=== PATIENT | female | born 1945 | race African-American/Black ===

== ENCOUNTER 2016-06-01 18:55 | Emergency (ER) ==
[2016-06-01] MEDS ORDERED: NORCO-10 PO ONE (19:25)
[2016-06-01] MEDS ORDERED: TORADOL IM ONE (19:36)
--- NOTE | 2016-06-01 19:38 | PROVIDER DOCUMENTATION ---
HPI-Musculoskeletal Pain/Inj - GENERAL Chief Complaint: Extremity Pain Stated Complaint: RT ARM PAIN Time Seen by Provider: 06/01/16 19:24 Source: patient - HX OF PRESENT ILLNESS-MUSKULOSKELTAL Nature of Presenting Problem: Pt is a 71 y/o F c chief complaint of lateral elbow pain and decreased ability to extend at the elbow joint x 1 day. Pt denies any traumatic injury but states she has been lifting differently with her right arm. Pt has a h/o gout. On arrival, pt is in minimal distress and has her arm in a modified sling. Review of Systems - Adult - REVIEW OF SYSTEMS - ADULT Constitutional: reports: no symptoms reported. denies: chills, fatique Eyes: reports: no symptoms reported. denies: blurred vision, double vision Ears, Nose, Mouth & Throat: reports: no symptoms reported. denies: ear pain, nose pain, throat pain Cardiovascular: reports: no symptoms reported. denies: chest pain, orthopnea Respiratory: reports: no symptoms reported. denies: cough, shortness of breath Gastrointestinal: reports: no symptoms reported. denies: abdominal pain, diarrhea, nausea Genitourinary: reports: no symptoms reported. denies: discharge, hematuria Musculoskeletal: reports: bone pain, joint pain, joint swelling Integumentary: reports: no symptoms reported. denies: itching, rash Neurological: reports: no symptoms reported. denies: numbness, paresthesia Psychiatric: reports: no symptoms reported. denies: anxiety, emotional problems Endocrine: reports: no symptoms reported. denies: cold intolerance, heat intolerance Hematologic/Lymphatic: reports: no symptoms reported. denies: blood clots, low blood count Allergic/Immunologic: reports: no symptoms reported. denies: allergic reactions , food allergy All Other Systems: Reviewed and Negative Past History - Adult - PAST MEDICAL HISTORY-ADULT Review of Records: reports: Old Records Reviewed, Nursing Assessment Review, Medications Reviewed, Social history reviewed & non-contributory. Major Childhood Illnesses: reports: denies history Cardiovascular: reports: HTN, hyperlipidemia Respiratory: reports: denies history Gastrointestinal: reports: denies history Obstetrical/Gynecological: reports: denies history Genitourinary: reports: denies history Musculoskeletal: reports: other (gout) Neurological: reports: other (neuropathy) Endocrine/Immune: reports: Diabetes, thyroid disorder (hypothyroidism) Other Conditions: reports: denies history - PRIOR SURGERIES/PROCEDURES Surgical/Procedure History: reports: cholecystectomy, hysterectomy, other ( laser eye surgery) - IMMUNIZATION STATUS Childhood Immunizations: See Nurse Assessment Flu Vaccine: See Nurse Assessment - FAMILY HISTORY Family History: reviewed, not pertinent - SOCIAL HISTORY Smoking: denies Substance Use: none/never Alcohol Use Frequency: never Physical Exam-Injury Related - Physical Exam-Injury Related Initial Vital Signs Reviewed: Yes General Appearance: appears well, alert, no apparent distress Eyes: PERRL/EOMI, pink conjunctivae Head, Ears, Nose, Mouth & Throat: normocephalic/atraumatic, moist mucous membranes, normal ENT inspection Neck: non-tender, full range of motion, supple Respiratory: chest non-tender, lungs clear, normal breath sounds Cardiovascular: normal peripheral pulses, regular rate, rhythm, no edema Abdominal Exam: normal bowel sounds, non tender, soft Back Exam: normal inspection Extremity: normal range of motion, non-tender, normal gait Integumentary: normal color, warm/dry, blanching Neurologic: grossly normal, no motor/sensory deficits Psych/Mental Status: normal mood/affect, normal thought content, normal thought process, oriented x 3 - Glascow Coma Score Best Eye Response ([place]): (4) open spontaneously Best Verbal Response ([place]): (5) oriented Best Motor Response ([place]): (6) obeys commands Progress - PLAN OF CARE/RESULTS Progress/Plan/Lab Results: Orders Category Date Time Status Arm Sling DIRECTED Care 06/01/16 19:54 Active ELBOW COMPLETE RIGHT [RAD] Stat Exams 06/01/16 19:25 Taken Hydrocodone/APAP 10 mg/325 mg [[place]-10] Med 06/01/16 19:25 Discontinued 1 each PO NOW ONE Ketorolac [Toradol] Med 06/01/16 19:36 Discontinued 30 mg IM NOW ONE Vital Signs - 24 hr 06/01/16 18:57 Temperature 98.4 F Pulse Rate 85 Respiratory 16 Rate Blood Pressure 169/77 O2 Sat by Pulse 100 Oximetry Procedures - SPLINTING Right Upper Extremity Other Location: R arm Pre-Procedure Neurovascular Exam: Intact Pre-Fabricated Splint: Arm Sling Applied By: mechanical shop laborer Assisted By: ED Nurse Post Procedure Neurovascular Exam: Intact Departure - Departure Time of Disposition Order: 19:56 DIAGNOSIS: Gout Qualifiers: Gout site: elbow Gout etiology: unspecified cause Laterality: right Chronicity : acute Qualified Code(s): M10.9 - Gout, unspecified Lateral epicondylitis of elbow Qualifiers: Laterality: right Qualified Code(s): M77.11 - Lateral epicondylitis, right elbow Disposition: HOME 01 Certified Medical Emergency: Emergent Condition: Stable Additional Instructions: ED Follow Up Instructions: You have been treated by a care provider in the Emergency Department. These instructions are being provided to you so you can have an understanding of how to care for yourself upon discharge. Upon discharge from the Emergency Department, you are responsible for making arrangements for follow-up care by a physician of your choice. Take all prescribed medications as directed. Return to the Emergency Department immediately for any new or worsening symptoms. You may call the Physician Referral phone number at [phone] to obtain a list of Physicians who are taking new patients. Prescriptions: Tramadol [Ultram] 50 mg PO Q8HR #14 tablet Referrals: Louise Burgess MD [Primary Care Provider] - Phoenix Tolentino MD [STAFF PHYSICIAN] - Attestation - Physician/ OVIDIO Attestation Patient care was provided by Advanced Practice Provider:: Yes Advanced Practice Provider:: Joni Flood Advanced Practice Provider documentation review:: The Mid-level provider documentation, treatment plan and medical decision making was reviewed by the physician who agrees with all treatment and medical decision making by the MLP.
[2016-06-01 20:13] VITALS: BP 144/65
--- NOTE | 2016-06-02 08:07 | Diag Imaging Result Document ---
PROCEDURE NAME: ELBOW COMPLETE RIGHT - 06/01/2016 RIGHT ELBOW, 3 VIEWS: FINDINGS: There is some spurring over the epicondyles. There is no evidence of fracture or dislocation. No evidence of effusion is present. IMPRESSION: No acute bony disease.
== END 2016-06-01 20:42 | disposition home or self-care (01) ==
LOC: ED 18:55
DX: M77.11 Lateral epicondylitis, right elbow (principal); M10.9 Gout, unspecified; M25.521 Pain in right elbow; M25.421 Effusion, right elbow; I10 Essential (primary) hypertension; E78.5 Hyperlipidemia, unspecified; E11.40 Type 2 diabetes mellitus with diabetic neuropathy, unspecified; E03.9 Hypothyroidism, unspecified; Z79.899 Other long term (current) drug therapy; X50.9XXA Other and unspecified overexertion or strenuous movements or postures, initial encounter
CPT/HCPCS: J1885

== ENCOUNTER 2016-06-05 18:42 | Emergency (ER) ==
[2016-06-05] MEDS ORDERED: DECADRON IM ONE (19:46)
--- NOTE | 2016-06-05 19:50 | PROVIDER DOCUMENTATION ---
HPI-Musculoskeletal Pain/Inj - GENERAL Chief Complaint: Edema Stated Complaint: RECHECK FROM SUNDAY Time Seen by Provider: 06/05/16 19:39 Source: patient - HX OF PRESENT ILLNESS-MUSKULOSKELTAL Nature of Presenting Problem: 71 y/o BF c/o R hand pain x 2 days. Pt states hx of gout and was seen 4 days ago for R elbow pain. States that she has been taking tramadol for the pain. States still taking allopurinol. Denies any other sxs. Review of Systems - Adult - REVIEW OF SYSTEMS - ADULT Constitutional: reports: no symptoms reported. denies: chills, fever Eyes: reports: no symptoms reported. denies: blurred vision, double vision Ears, Nose, Mouth & Throat: reports: no symptoms reported. denies: ear pain, nose pain Cardiovascular: reports: no symptoms reported. denies: chest pain, palpitations Respiratory: reports: no symptoms reported. denies: cough, shortness of breath Gastrointestinal: reports: no symptoms reported. denies: nausea, vomiting Genitourinary: reports: no symptoms reported. denies: dysuria, frequency Musculoskeletal: reports: see HPI, joint pain. denies: back pain, neck pain Integumentary: reports: no symptoms reported. denies: nail changes, rash Neurological: reports: no symptoms reported. denies: numbness, paresthesia Psychiatric: reports: no symptoms reported Endocrine: reports: no symptoms reported. denies: cold intolerance, heat intolerance Hematologic/Lymphatic: reports: no symptoms reported. denies: easy bruising, prolonged bleeding Allergic/Immunologic: reports: no symptoms reported All Other Systems: Reviewed and Negative Past History - Adult - PAST MEDICAL HISTORY-ADULT Review of Records: reports: Nursing Assessment Review, Medications Reviewed Major Childhood Illnesses: reports: denies history Cardiovascular: reports: HTN, hyperlipidemia Respiratory: reports: denies history Gastrointestinal: reports: denies history Obstetrical/Gynecological: reports: denies history Genitourinary: reports: denies history Musculoskeletal: reports: other (gout) Neurological: reports: other (neuropathy) Endocrine/Immune: reports: Diabetes, thyroid disorder (hypothyroidism) Other Conditions: reports: denies history - PRIOR SURGERIES/PROCEDURES Surgical/Procedure History: reports: cholecystectomy, hysterectomy, other ( laser eye surgery) - IMMUNIZATION STATUS Childhood Immunizations: See Nurse Assessment Flu Vaccine: See Nurse Assessment - FAMILY HISTORY Family History: reviewed, not pertinent - SOCIAL HISTORY Smoking: denies Alcohol Use Frequency: occasionally Physical Exam-Injury Related - Physical Exam-Injury Related Initial Vital Signs Reviewed: Yes General Appearance: alert, mild distress Eyes: pink conjunctivae Head, Ears, Nose, Mouth & Throat: normocephalic/atraumatic, moist mucous membranes Neck: normal inspection Respiratory: no respiratory distress Cardiovascular: normal peripheral pulses, regular rate, rhythm Peripheral Pulses: radial (R): 2+, radial (L): 2+ Back Exam: normal inspection Extremity: normal range of motion, normal gait, normal inspection, normal capillary refill, erythema (R hand), swelling (R hand), tenderness (R hand). negative: abnormal NV exam, deformity, pulse deficit Integumentary: normal color, warm/dry, blanching Neurologic: negative: aphasia Psych/Mental Status: normal mood/affect, normal thought content, normal thought process, oriented x 3 Progress - PLAN OF CARE/RESULTS Progress/Plan/Lab Results: Orders Category Date Time Status Arm Sling DIRECTED Care 06/05/16 19:56 Active Dexamethasone [Decadron] Med 06/05/16 19:46 Discontinued 10 mg IM NOW ONE Vital Signs Temp Pulse Resp BP Pulse Ox 06/05/16 20:05 89 18 125/53 100 06/05/16 18:55 98.9 F 90 18 146/66 98 streptomycin [Streptomycin] Adverse Reaction (Unknown, Verified 06/05/16 19:54) NAUSEA/VOMITING Levothyroxine [Synthroid] 25 microgm PO DAILY 04/08/13 Rosuvastatin Calcium [Crestor] 40 mg PO HS 04/08/13 Gabapentin 300 mg PO BID 08/07/15 Difluprednate [Durezol] 5 ml OP TID 03/04/16 Peg 400/Hypromellose/Glycerin [Visine Tired Eye Relief Drop] 15 ml OP BID Allopurinol [Zyloprim] 100 mg PO DAILY #30 tablet 03/10/16 Folic Acid 1 mg PO BID #60 tablet 03/10/16 Tramadol [Ultram] 50 mg PO Q8HR #14 tablet 06/01/16 Naproxen [Naprosyn] 500 mg PO BID #14 tablet 06/05/16 Discussed medication use and f/u with specialist for further management. Departure - Departure Time of Disposition Order: 19:53 DIAGNOSIS: Gout Qualifiers: Gout site: hand Gout etiology: unspecified cause Laterality: right Chronicity: acute Qualified Code(s): M10.9 - Gout, unspecified Disposition: HOME 01 Certified Medical Emergency: Emergent Condition: Stable Additional Instructions: Take medications as directed. Stop allopurinol for 5 days. Continue all other medications. follow up with specialist for further evaluation. ED Follow Up Instructions: You have been treated by a care provider in the Emergency Department. These instructions are being provided to you so you can have an understanding of how to care for yourself upon discharge. Upon discharge from the Emergency Department, you are responsible for making arrangements for follow-up care by a physician of your choice. Take all prescribed medications as directed. Return to the Emergency Department immediately for any new or worsening symptoms. You may call the Physician Referral phone number at [phone] to obtain a list of Physicians who are taking new patients. Prescriptions: Naproxen [Naprosyn] 500 mg PO BID #14 tablet Referrals: Louise Burgess MD [Primary Care Provider] - Margarita Gerardo MD [STAFF PHYSICIAN] - Instructions: Gout, [id number] Attestation - Physician/ OVIDIO Attestation Patient care was provided by Advanced Practice Provider:: Yes Advanced Practice Provider:: Tasia Woodward Advanced Practice Provider documentation review:: The Mid-level provider documentation, treatment plan and medical decision making was reviewed by the physician who agrees with all treatment and medical decision making by the MLP.
[2016-06-05 20:06] VITALS: BP 125/53
== END 2016-06-05 20:06 | disposition home or self-care (01) ==
LOC: ED 18:42
DX: M10.9 Gout, unspecified (principal); M79.641 Pain in right hand; I10 Essential (primary) hypertension; E78.5 Hyperlipidemia, unspecified; E11.40 Type 2 diabetes mellitus with diabetic neuropathy, unspecified; E03.9 Hypothyroidism, unspecified; Z79.899 Other long term (current) drug therapy